=== PATIENT | female | born 1990 | race Caucasian/White ===

== ENCOUNTER 2018-02-03 18:45 | Emergency (ER) | payer OTHER ==
[~2018-02-03] VITALS: Ht 160 cm; Wt 45.4 kg
--- NOTE | 2018-02-03 19:07 | NUR ---
RECEIVED PT IN BED FROM [facility] STODD[facility]. BED IN LOW AND LOCKED POSITION WITH BILATERAL SIDERAILS UP. PT DOES NOT APPEAR TO BE IN ANY ACUTE DISTRESS. PT AWAITING TO BE SEEN BY .
--- NOTE | 2018-02-03 19:12 | NUR ---
PT A/OX4, RESPONSIVE TO VERBAL AND TACTILE STIMULI. PT C/O ABD PAIN. ABD PAIN STARTED ~3 WEEKS AGO, NO PROVOKING FACTOR, DOES NOT RADIATE, 11/12, CONSTANT. UPON ASSESSMENT, ABD IS NOT DISTENDED, ACTIVE ABD SOUNDS, ABD FIRM, ABD PAIN IS IN ALL 4 QUADRANTS, PT STATES SHE BELIEVES THE ABD PAIN IS RELATED TO HER IV COCAINE AND HEROIN USE. LAST IV COCAINE AND HEROIN USE WAS TODAY. VSS. PT DENIES C/P, SOB, N/V/D. AWAITING TO BE SEEN BY
--- NOTE | 2018-02-03 20:35 | NUR ---
BENOIT CHIU AT BEDSIDE.
--- NOTE | 2018-02-03 20:46 | NUR ---
MOUNTER FLUTES AND PICCOLOS AT BEDSIDE.
[2018-02-03] MEDS ORDERED: DIATR MEGLU/DIATRIZOATE SODIUM 120 ML BOTTLE ONE (22:11)
[2018-02-03] MEDS ORDERED: DIATR MEGLU/DIATRIZOATE SODIUM 120 ML BOTTLE PO ONE (22:15)
[2018-02-03 22:25] VITALS: BP 136/80
--- NOTE | 2018-02-03 22:26 | NUR ---
Patient discharged to home in stable conditon. Written and verbal after care instructions given. Patient verbalizes understanding of instructions. PT STABLE AT TIME OF D/C. PT SELF-AMBULATED WITHOUT DIFFICULTY. ALL BELONGINGS TAKEN W/ PT.
== END 2018-02-03 22:27 | disposition home or self-care (01) ==
LOC: ER 18:48
DX: K59.00 Constipation, unspecified (principal); F11.10 Opioid abuse, uncomplicated; F14.10 Cocaine abuse, uncomplicated
CPT/HCPCS: 74018; A4663; Q9963